=== PATIENT | male | born 1940 | race Caucasian/White ===

== ENCOUNTER 2019-10-10 14:54 | Emergency (ER) | payer OTHER, SELFPAY ==
--- NOTE | ~2019-10-10 | XR_ITS ---
XR hand RT min 3V 10/10/2019 15:47 Indication: Right hand pain after fall on outstretched hand Procedure: 3 views right hand Comparison: No prior studies for comparison. 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 No acute fracture or traumatic malalignment. There are arterial calcifica tions. No erosive changes. Impression: 1: No acute fracture. 2: Polyarticular osteoarthritis. Reviewed, dictated and finalized at location B. Impression: 1: No acute fracture. 2: Polyarticular osteoarthritis.
[2019-10-10 15:17] VITALS: BP 149/63; PULSE 69; RESP 20; TEMP 36.6; O2SAT 99
--- NOTE | 2019-10-10 15:19 | ED.UPPEXIN ---
HPI - Extremity Injury (Upper) General Chief Complaint: Extremity Injury, Upper Stated Complaint: right hand injury Time Seen by Provider: 10/10/19 15:37 Source: patient and RN notes reviewed Mode of arrival: ambulatory Limitations: no limitations History of Present Illness HPI narrative: 79-year-old male presents with concern for right hand pain and swelling. Reports on Tuesday he cut the grass in the heat, put his lawnmower away in his barn and fell walking back from the barn. Reports he blacked out . Reports abrasions to his face, arms. Reports right hand swelling, pain. Reports other symptoms have improved, abrasions are scabbed, however his hand is still swollen, bruised, painful. Denies headache, nausea, blurred vision, vomiting, weakness in any extremity. Reports he is on blood thinners. [id number] MD complaint: injury to: right and hand Related Data Home Medications Medication Instructions Recorded Confirmed amlodipine 5 mg PO DAILY 10/10/19 10/10/19 apixaban [Eliquis] 2.5 mg PO BID 10/10/19 10/10/19 atorvastatin 40 mg PO DAILY 10/10/19 10/10/19 carvedilol 25 mg PO BID 10/10/19 10/10/19 finasteride 5 mg PO DAILY 10/10/19 10/10/19 furosemide 40 mg PO DAILY 10/10/19 10/10/19 gabapentin 300 mg PO TID 10/10/19 10/10/19 hydralazine 10 mg PO TID 10/10/19 10/10/19 hydrocodone-acetaminophen 1 tablet PO BID 10/10/19 10/10/19 insulin aspart U-100 5 unit SUBCUT TID 10/10/19 10/10/19 insulin glargine [Lantus U-100 40 unit SUBCUT DAILY 10/10/19 10/10/19 Insulin] levothyroxine 112 mcg PO DAILY 10/10/19 10/10/19 zolpidem 10 mg PO HS 10/10/19 10/10/19 Allergies Allergy/AdvReac Type Severity Reaction Status Date / Time No Known Allergies Allergy Verified 10/10/19 15:43 Review of Systems Review of Systems: Narrative: CONSTITUTIONAL: Denies malaise, chills, sweats, or fever. EYES: Denies visual changes CARDIOVASCULAR: Denies chest pain, palpitations RESPIRATORY: Denies cough or dyspnea. GI: Denies nausea, vomiting SKIN: Reports scabbed abrasions on face, arms MUSCULOSKELETAL: Reports right hand pain, swelling, bruising NEUROLOGIC: Denies numbness, weakness, or headache. All systems reviewed & are unremarkable except as noted in HPI and below PMFSH Comments At time of signature, agree with nursing past medical, surgical, social and family history. There is no relevant family history pertinent to the presenting complaint Exam Narrative: Exam Narrative: GENERAL: Well-appearing, well-nourished, and in no acute distress. HEAD: Normocephalic EYES: PERRLA, conjunctivae clear NECK: Supple. CHEST: Speaks in full sentences. No respiratory distress. HEART: Regular rate and rhythm. Normal and equal peripheral pulses. EXTREMITIES: Right hand and digits of hand have normal strength and sensation. 5/5 strength with digit flexion, extension. Range of motion normal. No clubbing, cyanosis. Dorsal hand edema, mild digit edema, 2 through 5, generalized dorsal hand tenderness, palmar ecchymosis. Skin intact. Normal digital cascade with flexion of fingers, median, ulnar and radial nerve intact. Normal sensation of each side of finger. Can perform 'okay' sign, 'cross over finger test of index and middle fingers' and 'thumbs up' sign. No scissoring. Normal thumb opposition. Good capillary refill and radial pulse. Distal capillary refill <3 seconds. SKIN: Warn, dry, pink. Scabs noted to bilateral knees, face NEURO: Alert and oriented x3. No focal deficits. Cranial nerves II through XII grossly intact PSYCH: Normal mood and affect Course Course Emergency Course: Discussed with patient limited diagnostic capability at [facility], concern for patient's syncope on Tuesday and subsequent abrasions on patient's head. Patient states at this time he is only concerned about his hand. States he has felt fine in the last couple of days. Continue discussion with patient regarding further evaluation emergency department. Love smith
== END 2019-10-10 16:10 | disposition home or self-care (01) ==
PROVIDERS: Emergency Provider Nurse Practitioner; PCP Family Medicine
DX: S63.91XA Sprain of unspecified part of right wrist and hand, initial encounter (principal); W19.XXXA Unspecified fall, initial encounter; I48.91 Unspecified atrial fibrillation; Z95.1 Presence of aortocoronary bypass graft; E78.00 Pure hypercholesterolemia, unspecified; I10 Essential (primary) hypertension; I25.10 Atherosclerotic heart disease of native coronary artery without angina pectoris; E11.9 Type 2 diabetes mellitus without complications; E03.9 Hypothyroidism, unspecified
CPT/HCPCS: 73130; 99213; G0463